=== PATIENT | male | born 1930 | race Caucasian/White ===

== ENCOUNTER → 2016-09-23 | Outpatient (CLI) | payer MEDICARE ==
[~2016-09-23] MED LIST: ACET-2321 PO; ASPI-1115 PO; BETAMETHASONE 6mg/ml INJECTION IM ONE; BUPIVACAINE 0.25% (2.5mg/ml) INJ 30ml SDV ONE; CALC-898 PO; CHOL100018 PO; CLOB50SO2 TOP; FINA5TAB40 PO; IOTHALAMATE MEGLUMINE 60% (600mg/ml) 30ml INJ IV ONE; LIDOCAINE 1% (10mg/ml) 5ml VIAL ONE; LISI-15 PO; MULT-806 PO; POLY17PO6 PO; SENN-125 PO; SIMV20TA80 PO; SOTA80TA42 PO; TAMS0.4C20 PO; TRAM50TA53 PO
--- NOTE | 2016-09-23 15:26 | DI ---
INDICATION: ITS.REASON: M25.551 Pain in right hip; M16.9 INJECTION/DRN HIP RT W/FLUORO: THERAPEUTIC HIP INJECTION: The procedure including the benefits, risks, and alternatives were explained in detail to the patient. All of their questions were answered. They stated that they understood and wished to proceed. Informed consent was obtained. A pre-procedural timeout was done to verify the patient and proper procedure. Using sterile technique, local Xylocaine anesthesia, and fluoroscopic guidance, a 22-gauge spinal needle was advanced into the right hip. A small amount of x-ray contrast was injected to confirm proper intra-articular position of the needle tip. A fluoroscopic image was then taken and archived. A combination of 3 cc 1% lidocaine, 4 cc 0.25% bupivacaine, and 1 cc betamethasone were slowly instilled within the joint of the right hip. The needle was then removed. The procedure was completed without complication. Following this, the patient left the imaging department in stable condition. Impression: Technically successful right intra-articular hip joint injection for therapeutic purposes. Fluoroscopy dose: 20.73 mGy (Cumulative air kerma) Tulio Mabry RPA/ALBAN performed this under my personal supervision .
== END ==
LOC: IMA 10:39
PROVIDERS: ATTEND Physician Assistant Surgical
DX: M25.551 Pain in right hip (principal); M16.9 Osteoarthritis of hip, unspecified
CPT/HCPCS: 20610; 77002; J0702; Q9961

== ENCOUNTER 2018-01-02 07:30 | Inpatient (IN) ==
[~2018-01-02 07:30] MED LIST changes: -ACET-2321 PO; +ACETAMINOPHEN 500 MG TABLET PO ONE; -ASPI-1115 PO; -BETAMETHASONE 6mg/ml INJECTION IM ONE; -BUPIVACAINE 0.25% (2.5mg/ml) INJ 30ml SDV ONE; -CALC-898 PO; -CHOL100018 PO; -CLOB50SO2 TOP; +DEXAMETHASONE 4 MG/ML INJECTION IVP ONE; -FINA5TAB40 PO; -IOTHALAMATE MEGLUMINE 60% (600mg/ml) 30ml INJ IV ONE; +LIDOCAINE 1% (10mg/ml) 2mL INJ PF SDV ID ONE; -LIDOCAINE 1% (10mg/ml) 5ml VIAL ONE; -LISI-15 PO; +METOCLOPRAMIDE 10mg/2ml INJECTION IVP ONE; -MULT-806 PO; +ONDANSETRON 4 MG/2 ML INJECTION IVP ONE; -POLY17PO6 PO; -SENN-125 PO; -SIMV20TA80 PO; -SOTA80TA42 PO; -TAMS0.4C20 PO; -TRAM50TA53 PO
[2018-01-02] MEDS ORDERED: EPINEPHrine PF 0.25 MG, BUPIVACAINE 0.25% PF 30 ML, KETOROLAC INJ 60 MG in NS 30 ML OPSITE ONE (08:00)
[2018-01-02 09:36] VITALS: BMI 35.9
[2018-01-02] MEDS: FAMOTIDINE PB 20 MG/50 ML BAG IV ONE ×2 (10:09→10:32)
[2018-01-02] MEDS: LR 1,000 ML IV SCH ×3 (10:09→14:01)
[2018-01-02] MEDS: NOZIN NASAL SWAB NAS SCH ×5 (10:11→21:49)
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
[2018-01-02] MEDS ORDERED: MIDAZOLAM 2mg/2ml INJECTION ONE (11:16)
[2018-01-02] MEDS ORDERED: PROPOFOL 60 ML ONE (11:16)
[2018-01-02] MEDS ORDERED: CEFAZOLIN 1 G INJECTION IVP ONE (11:30)
[2018-01-02] MEDS ORDERED: VANCOMYCIN 1,000 MG INJECTION ONE (11:52)
[2018-01-02] MEDS ORDERED: LIDOCAINE 2% (100mg/5mL) 5ml PF SDV ONE (12:10)
[2018-01-02] MEDS ORDERED: BUPIVACAINE 0.75%/DEXTROSE 8.5% SPINAL 2 ML AMPULE IJ ONE (12:10)
[2018-01-02] MEDS ORDERED: VANCOMYCIN 1,000 MG INJECTION IAR ONE (13:01)
[2018-01-02] MEDS ORDERED: EPHEDRINE 50mg/ml INJECTION ONE (13:28)
[2018-01-02] MEDS ORDERED: PROPOFOL 20 ML ONE (13:54)
--- NOTE | 2018-01-02 14:01 | Operative Note ---
- Procedure Preoperative Diagnosis: Right hip primary degenerative joint disease Postoperative Diagnosis: Same as preoperative diagnosis. Surgeon: Geovanna Grimes MD Clearing Inspector: Lul Mao Complications: None. Anesthesia: Spinal. Estimated Blood Loss: See Anesthesia Record. Fluids: Please see Anesthesia Record. Description of Procedure: Mr. Lin and his right hip were identified and marked in the preoperative holding area. He was brought back to the operating suite and spinal anesthetic was administered. He was then placed in a lateral decubitus position with his right hip up. The right lower extremity was prepped and draped in my normal sterile fashion. Timeout was performed. The [employer] Feint robotic arm was used to assist with the surgery. A pelvic array was placed into the iliac crest through three small incisions. A direct superior approach was utilized. An approximately 13 cm incision was made in the skin and dissection carried down to the muscle fascia which was then split in line with skin incision. The short external rotators were identified and tagged and detached. A capsulotomy was performed and the hip dislocated. A femoral neck osteotomy was performed at the pre-templated level measuring down from the femoral head. The head was removed and acetabulum exposed. Labrum was removed. The acetabulum was then registered with the robot. The robotic arm was then used to ream with a 59 reamer. The robot then was again used to place a 60 Trident cup in 40 of tilt and 22 of anteversion. I was unable to seat the cup completely down to the medial wall. He had an excellent rim fit and purchase was checked by shucking the cup with a Reema. It was very stable. One screw was placed into the posterior superior quadrant which was 30 mm in length. A liner was then placed. The proximal femur was exposed and prepared with a cookie cutter followed by reaming and broaching to a size 11 which was the largest size. We trialed with a standard head. After thorough irrigation a final Accolade 2 size 11 stem with 127 neck was placed. Leg length and offset were checked with the robot and were good. A final standard 36 mm metal head was placed and the hip reduced. Betadine solution was used to irrigate throughout the case. It was followed by normal saline irrigation. Joint cocktail was injected throughout soft tissue. The capsulotomy was repaired with Ethibond. Short external rotators were also repaired with Ethibond. 3 grams of TXA was allowed to sit in the wound for 5 minutes and then suctioned out. 1 g of vancomycin powder was placed into the wound. The muscle fascia was then repaired with #1 Vicryl. I then left my preschool assistant director to close the subcutaneous tissue with 2-0 Vicryl followed by running 4-0 Monocryl skin followed by Dermabond and a sterile dressing. The patient with any placed back into supine position and taken to recovery room in the care of anesthesia.
[2018-01-02] MEDS ORDERED: NOZIN NASAL SWAB NAS ONE (15:16)
[2018-01-02] MEDS ORDERED: DiphenhydrAMINE 50 MG/ML INJECTION IVP PRN (15:16)
[2018-01-02] MEDS ORDERED: LORazepam 1 MG TABLET PO PRN (15:16)
[2018-01-02] MEDS ORDERED: DiphenhydrAMINE 25 MG CAPSULE PO PRN (15:16)
[2018-01-02] MEDS ORDERED: ONDANSETRON 4 MG/2 ML INJECTION IVP PRN (15:16)
--- NOTE | 2018-01-02 15:22 | Anesthesia Postoperative Note ---
- Date and Time Date: 01/02/18 Time: 15:21 - Status Patient Participated in Evaluation: Patient Participated in Person Vital Signs: Temperature 97.5 F 01/02/18 14:30 Pulse Rate 75 01/02/18 15:01 Respiratory Rate 14 01/02/18 15:01 Blood Pressure 161/89 H 01/02/18 09:35 Pulse Oximetry 95 01/02/18 15:01 Respiratory Function: Airway Patent Cardiovascular Function: Regular Pulse (Patient does have runs of paced beats. Dr Grimes Notified) EKG: Sinus Rhythm Mental Status: Alert and Oriented Pain Intensity: 0 Hydration: IV Infusing Nausea/Vomiting: None Complications During Recover: None Apparent - Follow-Up Instructions Instructions: Per Surgeon
[2018-01-02] MEDS: NS 1,000 ML IV SCH (15:29)
--- NOTE | 2018-01-02 15:30 | XRay Report ---
Indication: postoperative image PROCEDURE: XR pelvis w/ 1 view RT hip: Encounter: Initial Comparison: December 13, 2017 Findings: Postoperative changes of right total hip replacement are seen. There is expected postoperative subcutaneous gas. No evidence of hardware failure or acute fracture. No retained radiopaque surgical instruments or sponges seen. Impression: New right total hip prosthesis without evidence of immediate complication. .
[2018-01-02] MEDS ORDERED: SALINE FLUSH 10ml SYRINGE IV PRN (16:05)
[2018-01-02] MEDS ORDERED: TRANEXAMIC ACID 3gm/NS 45ml IRR MIX IR ONE (16:05)
--- NOTE | 2018-01-02 16:19 | Consult Note ---
Consult Information - Data of Consult Consult date: 01/02/18 Requesting Physician: Uri Grimes MD Primary Care Provider: Trentno Rowland MD - Consult Narrative Reason for consult: Medical management History of present illness: Ilia Lin is an 87 year old male seen in consultation from Dr. Grimes for medical management. He was admitted on 01/02/18 for a right MICHELLE. He originally was going to have this surgery in February, but failed his stress test and underwent heart catheterization with stenting. He subsequently has been cleared for MICHELLE by his lodging manager, Dr. Beaulieu. He also has a medical history significant for A-fib, HTN, SSS (pacemaker) (Diabetes is listed on his record but he denies this). Ilia was seen postoperatively. He was A&O x3, and denied feeling drowsy, nauseated, or dizzy/lightheaded. He reports being in good health recently other than his right hip pain and denies fever/chills, cough/ URI symptoms, headaches, weakness, falling, chest pain, palpitations, leg swelling, abdominal pain, n/v/d/c, urinary problems, or other concerns. During surgery it was reported that he lost a little more blood compared to usual. Past Medical History Medical History: Medical History (Last Updated 01/02/18 @ 16:57 by Jennifer Graham APRN) CAD (coronary atherosclerotic disease) HTN (hypertension) Overactive bladder Sick sinus syndrome Surgical History: right MICHELLE 01/02/18 Dr. Grimes. heart cath with stents 03/2017 Dr. Handy. 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 knee replacement 02/2010. pacemaker 2009. colonoscopy. appendectomy Family History: Family History (Last Reviewed 12/13/17 @ 14:50 by Aisha Queen [facility]) Father Cancer of prostate Mother CAD (coronary atherosclerotic disease) Family History: As Above - Social History Smoking status: Never smoker Substance use type: does not use Alcohol intake frequency: does not drink Review of Systems All systems PM: 10-point ROS was reviewed, no additional remarkable complaints except - Constitutional Constitutional: Present: chills (cold postop) - Musculoskeletal Musculoskeletal: Present: other (right hip pain) Medications Home Medications Medication Instructions Recorded Confirmed Type Tamsulosin HCl [Flomax] 0.4 mg PO DAILY #0 07/13/09 01/02/18 History Clobetasol 0.05% Top Soln 1 applicatio TOP BID #0 09/07/15 01/02/18 History [Temovate Soln] Aspirin [Aspirin EC] 81 mg PO DAILY 04/18/17 01/02/18 History Calcium Carb, Citrate/Vit D3 1 each PO DAILY 04/18/17 01/02/18 History [Citracal + D ER Tablet] Coreg (carvedilol) 6.25 mg tablet 6.25 mg PO BID 04/18/17 01/02/18 History Lipitor (atorvastatin) 20 mg tablet 20 mg PO DAILY tab 04/18/17 01/02/18 History Lisinopril/Hctz 20/12.5 [Prinzide 1 tab PO DAILY 04/18/17 01/02/18 History 20/12.5] Multivitamin [One Daily 1 each PO DAILY 04/18/17 01/02/18 History Multivitamin] Nitrostat (nitroglycerin) 0.4 mg 0.4 mg SL Q5M PRN 04/18/17 12/27/17 History sublingual tablet Vitamin D3 (cholecalciferol) 1,000 1,000 unit PO DAILY cap 04/18/17 01/02/18 History unit capsule Amiodarone [Pacerone] 200 mg PO DAILY 12/27/17 01/02/18 History Finasteride [Proscar] 5 mg PO DAILY 12/27/17 01/02/18 History Tramadol [Ultram] 50 mg PO PRN PRN 12/27/17 01/02/18 History Allergies Allergy/AdvReac Type Severity Reaction Status Date / Time No Known Allergies Allergy Verified 01/02/18 09:58 Exam Vital Signs: Temperature 96.6 F L 01/02/18 15:30 Pulse Rate 75 01/02/18 15:45 Respiratory Rate 16 01/02/18 15:30 Blood Pressure 141/89 H 01/02/18 15:45 Pulse Oximetry 97 01/02/18 15:45 Height/Weight/BMI: Height 1.7 m Weight 104.2 kg Body Mass Index 35.9 - Constitutional Present: no acute distress, well nourished, well developed - Routine HEENT Exam Head: Present: normocephalic Eye: Present: PERRL. Absent: conjunctival icterus, scleral injection ENT: Present: mucous membranes dry - Routine Neck Exam Present: supple. Absent: lymphadenopathy - Routine Respiratory Exam Present: CTA bilaterally - Routine Cardiovascular Exam Present: RRR, S1, S2 - Routine Abdominal Exam Present: soft, normoactive bowel sounds, non distended, non tender - Routine Extremities Exam Present: no edema, pulses intact Comments: ice pack to right hip - Routine Skin Exam Present: intact, dry, warm - Routine Neurological Exam Present: alert, oriented X3, normal speech. Absent: facial asymmetry - Routine Psychiatric Exam Present: normal affect, normal thought process, cooperative Results - Labs CBC & Chem 7: 01/02/18 09:39 Assessment and Plan Assessment and Plan: Assessment S/P Right MICHELLE A-fib CAD HTN Pacemaker (history of SSS) Plan Stable postop. Monitor vitals, labs. Continue home meds for HTN, CAD, A-fib. Agree with IVF until oral intake stabilizes. Check BMP, hgb in am. Monitor for urine retention/constipation. Pain control, PT/OT per ortho. Prior records reviewed. Thank you for this consult. 01/02/2018-8 PM-I examined the patient independently. I reviewed this chart, the patient history, and the HOUSEHOLD APPLIANCE MECHANIC's/PA's documented findings as above. We discussed and formulated the assessment and plan as above with the additions below.-Dr. Mcdaniels Patient was seen this evening in his room accompanied by his , son and [id number]. The patient states he's feeling great and has already gone for a walk. He ate a good dinner. He is urinating without difficulties. He denies any chest pain or shortness of breath. He has had no nausea. He states he had a stent placed in March 2017. He has been on aspirin only since stent placement. He denies being on Plavix or any other anticoagulation or antiplatelet agent. On exam he is alert and oriented and in no acute distress. Chest is clear to auscultation. Cardio vascular reveals a regular rate and rhythm. Abdomen is soft and nontender. Extremities reveal trace to +1 pretibial edema. He has a nonhealing small ulcer on the right medial ankle. Impression Postop total hip arthroplasty-doing very well Paroxysmal A. fib-in sinus rhythm on amiodarone Coronary artery disease-asymptomatic. Stent placement in March 2017-only on aspirin History of pacemaker placement for sick sinus syndrome Small nonhealing ulcer of the right ankle Plan Will consult wound and skin regarding nonhealing ulcer on his right ankle Hemoglobin and basic metabolic profile tomorrow DVT prophylaxis per orthopedic service We will follow along with you. Thank you for the consult DVT Prophylaxis: SCD's Resuscitation Status: Full Code - Physician Narrative Narrative: Date: 01/02/18 Time: 1610 Hospital Course Summary Disclaimer: The visit summary below is not to be considered part of the above Progress Note.
[2018-01-02] MEDS: TRAMADOL 50 MG TABLET PO PRN ×2 (17:53→22:53)
[2018-01-02] MEDS: CARVEDILOL 6.25 MG TABLET PO SCH (17:53)
[2018-01-02] MEDS: ACETAMINOPHEN 325 MG TABLET PO SCH ×2 (17:53→20:35)
[2018-01-02] MEDS ORDERED: DEXAMETHASONE 20 MG/5 ML INJECTION IVP ONE (20:00)
[2018-01-02] MEDS: CEFAZOLIN 2 G in NS 100 ML IV SCH (20:32)
[2018-01-02] MEDS: ASPIRIN *EC* 81 MG TABLET PO SCH (20:36)
[2018-01-02] MEDS: DOCUSATE SODIUM 100 MG CAPSULE PO SCH (20:36)
[2018-01-02] MEDS: CLOBETASOL 0.05% TOP. SOLUTION 50ml TOP SCH (20:38)
[2018-01-02] MEDS ORDERED: SENNOSIDES 8.6 MG TABLET PO SCH (21:00)
[2018-01-02] MEDS ORDERED: ATORVASTATIN 20 MG TABLET PO SCH (21:00)
[2018-01-03] MEDS: NS 1,000 ML IV SCH (04:13)
[2018-01-03] MEDS: CEFAZOLIN 2 G in NS 100 ML IV SCH (04:16)
[2018-01-03 04:18] VITALS: RESP 16
[2018-01-03] MEDS: NOZIN NASAL SWAB NAS SCH ×3 (05:59→13:07)
--- NOTE | 2018-01-03 08:46 | Orthopedic Progress Note ---
Date: Date: 01/03/18 Time: 842 Subjective/Severity of Illness: Mr. Lin is lying in bed this morning during rounds. He has been up ambulating , pain of right hip has been well controlled. Reports was unable to sleep well, but due to noise. Denies CP, SOA, nausea. Tolerating PO well. History of Afib, SR with 1st degree AV block 70s. Hgb 10.3 Orthopedic Exam Vital signs: Temperature 96 F L 01/03/18 07:43 Pulse Rate 79 01/03/18 07:43 Respiratory Rate 16 01/03/18 04:16 Blood Pressure 124/69 01/03/18 07:43 Pulse Oximetry 92 01/03/18 07:43 - Constitutional General Appearance: Present: alert, orientated x3, cooperative, no acute distress - Cardiovascular Exam Present: pedal pulses intact - Abdominal Exam Present: soft - Extremities Exam Present: no edema, pulses intact. Absent: calf tenderness - Dressing Dressing: dry, intact, no drainage Comments: mepilex right hip - Integumentary Exam Present: pink, warm, dry - Neurological Exam Present: intact to light touch, no deficits - Psychiatric Exam Present: alert, oriented - Labs Result Diagrams: 01/03/18 04:08 01/03/18 04:08 Abnormal lab results 01/02/18 01/03/18 01/03/18 Range/Units 09:39 04:08 04:08 Hgb 10.3 L (13.5-17.5) GM/DL Chloride 108 H 109 H (98-107) MEQ/L Carbon Dioxide 21 L (22-30) MEQ/L BUN 27.0 H 32.0 H (9-20) MG/DL BUN/Creatinine Ratio 29 H (6-26) RATIO Glucose 127 H (75-110) MG/DL Calculated Osmolality 282 H (261-280) MOSM/KG Calcium 7.9 L D (8.4-10.2) MG/DL Specimen Hemolysis 26 H (0-25) H & H 01/03/18 Range/Units 04:08 Hgb 10.3 L (13.5-17.5) GM/DL Orthopedic Assessment and Plan (1) Status post right hip replacement Status: Acute Assessment and Plan: Current anti-coagulation protocol for VTE prophylaxis. SCD's for added protection PT/OT services to improve independent function. Discharge Planning per Case Management. Hospitalist consulted for medical management. - Additional Diagnoses Atrial Fibrillation: resume medications, rate controlled Hypertension: stable, resume medications CAD: no active chest pain Anemia: no intervention required, patient was asymptomatic, labs monitored Hospital Course Summary Disclaimer: The visit summary below is not to be considered part of the above Progress Note.
[2018-01-03] MEDS: ASPIRIN *EC* 81 MG TABLET PO SCH (08:51)
[2018-01-03] MEDS: CARVEDILOL 6.25 MG TABLET PO SCH (08:51)
[2018-01-03] MEDS: ACETAMINOPHEN 325 MG TABLET PO SCH ×2 (08:51→12:10)
[2018-01-03] MEDS: DOCUSATE SODIUM 100 MG CAPSULE PO SCH (08:51)
[2018-01-03] MEDS: CLOBETASOL 0.05% TOP. SOLUTION 50ml TOP SCH (08:52)
[2018-01-03] MEDS ORDERED: FINASTERIDE 5 MG TABLET PO SCH (09:00)
[2018-01-03] MEDS ORDERED: TAMSULOSIN 0.4 MG CAPSULE PO SCH (09:00)
[2018-01-03] MEDS ORDERED: POLYETHYL GLYCOL 3350 17gm PACKET PO SCH (09:00)
[2018-01-03] MEDS ORDERED: AMIODARONE 200 MG TABLET PO SCH (09:00)
[2018-01-03] MEDS ORDERED: LISINOPRIL/HCTZ 20/12.5 MG TABLET PO SCH (09:00)
--- NOTE | 2018-01-03 11:23 | Progress Note ---
- Date 01/03/18 Subjective: The patient was seen this morning in his room. He was getting ready to go over to the physical therapy department. He states he's feeling well. He ate a good breakfast. He denies any shortness of breath. He has no chest pain or lightheadedness. He is urinating without difficulty. He has not had a bowel movement since admission yesterday. Objective Vital signs: Temperature 96 F L 01/03/18 07:43 Pulse Rate 79 01/03/18 07:43 Respiratory Rate 16 01/03/18 04:16 Blood Pressure 124/69 01/03/18 07:43 Pulse Oximetry 92 01/03/18 07:43 Height/Weight/BMI: Height 1.7 m Weight 105.8 kg Body Mass Index 35.9 Comments: Afebrile, pulse 79, blood pressure 124/69, O2 sat 92% on room air GEN-alert, oriented, no acute distress CV-regular rate and rhythm CHEST-clear to auscultation bilaterally ABD-soft, nontender positive bowel sounds -no Laurent EXT-no edema NEURO-no focal deficits SKIN-warm and dry Results - Labs CBC & Chem 7: 01/03/18 04:08 01/03/18 04:08 - Impressions Overnight oximetry on room air revealed oxygen saturation less than 89% for approximately 70 minutes Assessment and Plan Assessment and Plan: Assessment S/P Right MICHELLE Paroxysmal [id number] in sinus rhythm CAD-asymptomatic HTN-well controlled Pacemaker (history of SSS) Nocturnal hypoxemia-70 minutes of time on overnight oximetry on room air Plan Overall, the patient is doing quite well. He will likely discharge to home later today. I'm in agreement with dismissal. DVT prophylaxis per orthopedic surgery. I did call and notify Dr. Rowland about the patient's abnormal overnight oximetry. The patient may benefit from a formal sleep study. Wound and skin nurses were consulted regarding his chronic ankle wound. Stable postop. Monitor vitals, labs. Discussed earlier today with Amber Ashford DVT Prophylaxis: SCD's Resuscitation Status: Full Code - Physician Narrative Narrative: Date: 01/03/18 Time: 1118 Hospital Course Summary Disclaimer: The visit summary below is not to be considered part of the above Progress Note.
[2018-01-03 12:27] VITALS: BP 141/69; PULSE 77; TEMP 96.1; O2SAT 95
[2018-01-03] MEDS ORDERED: SENNOSIDES 8.6 MG TABLET PO PRN (14:33)
--- NOTE | 2018-01-03 16:33 | Discharge Summary ---
Letter to PCP Cover Letter: Rony Lin underwent an elective total joint arthroplasty by Dr. Grimes. Aspirin 81mg BID therapy was initiated for DVT prophylaxis. Aspirin should be given BID for six weeks postoperatively. Details for their hospitalization can be found in the discharge summary attached. The patient is scheduled to see you one week after surgery for a post-operative check. I hope you find the discharge summary informative and helpful as you resume care of your patient after their surgery. If our office can be of any assistance, please feel free to contact us any time. Orthopedic Discharge Info Date of admission: 01/02/18 09:01 Anticipated date of discharge: 01/03/18 Primary care physician: Trenton Rowland MD Attending Physician: Uri Grimes MD Consults: 01/02/18 09:24 Consult to Anesthesiology [CONS] Routine Reason For Exam: Preoperative Assessment 01/02/18 15:16 Case Management Consult [CONS] Routine Reason For Exam: Discharge Planning DME-Walker [CONS] Routine Height: 5 ft 7 in Weight: 104.2 kg Total Joint Outpatient Therapy [CONS] Routine Comment: Remove dressing in 2 weeks 01/02/18 19:59 Wound Vein Clinic Consult [CONS] Routine Reason for consultation: non healing wound on right ankle 01/02/18 23:36 Physician Consult [CONS] Routine Consulting Provider: Connie Mcdaniels Reason For Exam: medical management Ordering Provider has Notified Grade Teacher: Yes - Discharge Diagnosis (1) Status post right hip replacement Status: Acute - Procedures Procedures: Procedures Replacement of Left Knee Joint with Synthetic Substitute, Cemented, Open Approach (09/22/15) Total knee replacement (04/13/10) - Laboratory Result Diagrams: 01/03/18 04:08 01/03/18 04:08 Laboratory: Abnormal lab results 01/03/18 01/03/18 Range/Units 04:08 04:08 Hgb 10.3 L (13.5-17.5) GM/DL Chloride 109 H (98-107) MEQ/L Carbon Dioxide 21 L (22-30) MEQ/L BUN 32.0 H (9-20) MG/DL BUN/Creatinine Ratio 29 H (6-26) RATIO Glucose 127 H (75-110) MG/DL Calcium 7.9 L D (8.4-10.2) MG/DL H & H 01/03/18 Range/Units 04:08 Hgb 10.3 L (13.5-17.5) GM/DL Orthopedic Discharge HPI - HPI Comments This patient was admitted for elective surgical tx of end stage degenerative joint disease that failed to respond to conservative treatment. Further details of this is found in the admission H&P. Orthopedic Hospital Course Hospital course: 01/03/18 16:29 After appropriate preoperative clearance and signing of operative consent, the patient was given IV antibiotics, according to orthopedic protocol. The patient was taken to the operating room and underwent elective joint arthroplasty. Following surgery, antibiotics were discontinued less than 24 hours according to joint protocol. Appropriate anticoagulants were initiated and SCDs added for DVT prevention. The dressing was clean, dry, and intact. Pain control was obtained via multimodal approach. Bowel motivation addressed with scheduled and PRN medications. Early mobilization was initiated through PT services. Discharge arrangements made by a collaborative effort between the patient and Case Management. Hospitalist consulted for multiple co-morbidity medical management. Paroxysmal A-fib-SR on telemetry with rate 70s. CAD-asymptomatic HTN-well controlled with resuming home medications Pacemaker (history of SSS) Nocturnal hypoxemia-70 minutes of time on overnight oximetry on room air Patient scheduled for medical follow up with PCP 1 week post-op. Follow-up is scheduled in 2-3 weeks. Discharge instructions given by orthopedic providers and nursing staff at discharge. Discharge condition was good. Care extended to > 2 midnight stays?: No Discharge Plan - Med Rec/Dispo Referrals/Follow Up: Lul Mao PA [Physician Windows Security Engineer] - 01/24/18 2:00 pm Trenton Rowland MD [Primary Care Provider] - 01/08/18 1:30 pm Sherri Instructions: [facility] [place] Ortho Postop Instructions Additional Instructions: [facility] ON 01/08/2018 AT 4:30PM FOR PHYSICAL THERAPY EVAL. PLEASE COMPLETE THE PAPERWORK IN THE [facility] [place] [facility]OLDER PRIOR TO THE APPOINTMENT. PHONE [phone] Prescriptions: New Acetaminophen [Tylenol] 650 mg PO QID tab Aspirin *EC* [Ecotrin] 81 mg PO BID tab Docusate Sodium [Colace] 100 mg PO BID cap Milk of Magnesia [Mom] 30 ml PO DAILY udc PEG 3350 17gm PACKET [Miralax] 17 gm PO DAILY packet Tramadol [Ultram] 50 - 100 mg PO Q6H PRN #60 tab PRN Reason: Pain Continue Tamsulosin HCl [Flomax] 0.4 mg PO DAILY #0 Lisinopril/Hctz 20/12.5 [Prinzide 20/12.5] 1 tab PO DAILY Aspirin [Aspirin EC] 81 mg PO DAILY Finasteride [Proscar] 5 mg PO DAILY Tramadol [Ultram] 50 mg PO PRN PRN PRN Reason: Pain Amiodarone [Pacerone] 200 mg PO DAILY Clobetasol 0.05% Top Soln [Temovate Soln] 1 applicatio TOP BID #0 Multivitamin [One Daily Multivitamin] 1 each PO DAILY Calcium Carb, Citrate/Vit D3 [Citracal + D ER Tablet] 1 each PO DAILY Lipitor (atorvastatin) 20 mg tablet 20 mg PO DAILY tab Coreg (carvedilol) 6.25 mg tablet 6.25 mg PO BID Nitrostat (nitroglycerin) 0.4 mg sublingual tablet 0.4 mg SL Q5M PRN PRN Reason: Angina Vitamin D3 (cholecalciferol) 1,000 unit capsule 1,000 unit PO DAILY cap - Disposition 01 Discharged Home, Self-Care - Dismissal Complete Discharge Instructions are:: Complete
[2018-01-04] MEDS ORDERED: BISACODYL 10 MG SUPPOSITORY RECTALLY SCH (20:00)
== END 2018-01-03 15:01 | disposition home or self-care (01) | DRG 470 ==
LOC: NMC.PERIOP 09:01 → SRG 15:25
PROVIDERS: ADMIT Orthopaedic Surgery; ATTEND Orthopaedic Surgery